=== PATIENT | male | born 1995 | race Caucasian/White ===

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

== ENCOUNTER 2017-03-30 19:49 | Emergency (ER) | END 2017-03-31 00:03 | disposition home or self-care (01) ==

== ENCOUNTER 2017-05-23 15:16 | Emergency (ER) | END 2017-05-23 18:42 | disposition home or self-care (01) ==

== ENCOUNTER → 2017-05-26 | Outpatient (CLI) | END | disposition home or self-care (01) ==

== ENCOUNTER → 2017-06-30 | Outpatient (CLI) | END | disposition home or self-care (01) ==

== ENCOUNTER 2018-11-12 04:55 | Emergency (ER) | payer BC ==
[~2018-11-12] VITALS: Ht 165.1 cm; Wt 69.4 kg
[~2018-11-12 04:55] MED LIST: ALBU8.5H8 INH; AMOX1TAB10 PO; AZIT250T PO; BEN50 PO; CEPH-443 PO; DICY10CA40 PO; ERYT1OIN6 BOTH EYES; GUAI5SYR2 PO; HYDR-3980 PO; HYDR-4011 PO; IBUP-1542 PO; IBUP800T48 PO; LORA-441 PO; LORA10TA3 PO; NAPR-688 PO; ONDA4TAB14 PO; PRED20TA PO
[2018-11-12 04:59] VITALS: BP 143/73; PULSE 86; RESP 19; Ht 165.1 cm; Wt 69.4 kg
[2018-11-12] MEDS ORDERED: FLUORESCEIN STRIP BOTH EYES ONE (05:30)
[2018-11-12] MEDS ORDERED: HYDROCODONE/APAP (5/325) TAB PO ONE (05:30)
[2018-11-12] MEDS ORDERED: DIPHTH/TET/ACEL PERTUSS (ADULT) 0.5 ML VIAL IM* ONE (05:30)
[2018-11-12] MEDS ORDERED: TETRACAINE 0.5% 4 ML OPH BOTH EYES ONE (05:30)
[2018-11-12] MEDS ORDERED: ERYTHROMYCIN 1 GM OPH OINT BOTH EYES ONE (07:00)
[2018-11-12] MEDS ORDERED: CEPHALEXIN 500 MG CAP PO ONE (07:30)
== END 2018-11-12 08:20 | disposition home or self-care (01) ==
LOC: FTE 04:55
DX: S01.111A Laceration without foreign body of right eyelid and periocular area, initial encounter (principal); S06.0X0A Concussion without loss of consciousness, initial encounter; S16.1XXA Strain of muscle, fascia and tendon at neck level, initial encounter; S05.01XA Injury of conjunctiva and corneal abrasion without foreign body, right eye, initial encounter; Y08.89XA Assault by other specified means, initial encounter; Z23 Encounter for immunization
CPT/HCPCS: 70450; 70486; 72125; 76536; 90471; 90715

== ENCOUNTER 2018-11-28 17:15 | Emergency (ER) | payer BC ==
[~2018-11-28] VITALS: Ht 167.6 cm; Wt 72.2 kg
[2018-11-28 17:49] VITALS: BP 143/89; PULSE 86; RESP 20; Ht 167.6 cm; Wt 72.2 kg
[2018-11-28] MEDS ORDERED: LORAZEPAM 1 MG TAB PO ONE (18:30)
== END 2018-11-28 18:20 | disposition home or self-care (01) ==
LOC: FTE 17:15
DX: F41.9 Anxiety disorder, unspecified (principal)
CPT/HCPCS: 99283